=== PATIENT | male | born 1970 | race Caucasian/White ===

== ENCOUNTER 2021-01-13 08:45 | Emergency (ER) | payer OTHER ==
[2021-01-13] MEDS ORDERED: diphenhydrAMINE 25 MG Cap PO ONE (09:34)
--- NOTE | 2021-01-13 09:37 | EDM.PDOC ---
ED HPI GENERAL MEDICAL PROBLEM - General Chief Complaint: Lower Extremity Injury/Pain Stated Complaint: L FOOT/ANKLE SWOLLEN Time Seen by Provider: 01/13/21 09:20 Source of Information: Reports: Patient. Denies: Old Records History Limitations: Reports: No Limitations - History of Present Illness INITIAL COMMENTS - FREE TEXT/NARRATIVE: 50 yo male tourist woke up today with his L foot and leg below the knee red and hot. He denies fever. He scratched at it and said if felt good. May have been bitten by an insect, is not sure. No open wounds. Onset: Today Onset Date: 01/13/21 Duration: Hour(s):, Constant Location: Reports: Lower Extremity, Left Quality: Reports: Dull Severity: Mild Improves with: Reports: None Worsens with: Reports: Other (unsure) Context: Reports: Other (See HPI) Associated Symptoms: Reports: No Other Symptoms. Denies: Fever/Chills Treatments [employer] LINE: Reports: NSAIDS - Related Data Allergies Allergy/AdvReac Type Severity Reaction Status Date / Time No Known Allergies Allergy Verified 01/13/21 09:05 Home Meds: Home Meds Testosterone 100 mg INJECT WEEKLY 01/13/21 [History] Past Medical History HEENT History: Reports: None Cardiovascular History: Reports: None Respiratory History: Reports: None Genitourinary History: Reports: None Musculoskeletal History: Reports: Fracture Neurological History: Reports: None Psychiatric History: Reports: None Endocrine/Metabolic History: Reports: None Hematologic History: Reports: None Immunologic History: Reports: None Oncologic (Cancer) History: Reports: None Dermatologic History: Reports: None - Infectious Disease History Infectious Disease History: Reports: Chicken Pox - Past Surgical History HEENT Surgical History: Reports: None GI Surgical History: Reports: Hernia Repair/Other Musculoskeletal Surgical History: Reports: Shoulder Surgery Other Musculoskeletal Surgeries/Procedures:: both Social & Family History - Tobacco Use Tobacco Use Status *Q: Current Every Day Tobacco User Years of Tobacco use: 30 Packs/Tins Daily: 0.5 - Recreational Drug Use Recreational Drug Use: No Review of Systems - Review of Systems Review Of Systems: See Below Constitutional: Reports: No Symptoms Mouth/Throat: Reports: No Symptoms Respiratory: Reports: No Symptoms Cardiovascular: Reports: No Symptoms Skin: Reports: Pruritis (mild of L leg), Erythema (from L knee down). Denies: Wound Neurological: Reports: No Symptoms ED EXAM, GENERAL - Physical Exam Exam: See Below Exam Limited By: No Limitations General Appearance: Alert, WD/WN, No Apparent Distress Eye Exam: Bilateral Eye: Normal Inspection Throat/Mouth: Normal Lips, Normal Oropharynx, Normal Voice, No Airway Compromise Head: Atraumatic, Normocephalic Respiratory/Chest: No Respiratory Distress, Lungs Clear, Normal Breath Sounds Cardiovascular: Regular Rate, Rhythm Extremities: Pedal Edema (L foot puffy dorsally), Increased Warmth (everywhere below the L knee), Redness (below the L knee). No: No Pedal Edema Neurological: Alert, Oriented, CN II-XII Intact, Normal Cognition, No Motor/Sensory Deficits Psychiatric: Normal Affect, Normal Mood Skin Exam: Warm, Dry, Intact, No Rash, Erythema (L leg and foot), Increased Warmth (L leg and foot). No: Normal Color, Wound/Incision Course - Vital Signs Last Recorded V/S: Last Vital Signs Temp 36.8 C 01/13/21 09:04 Pulse 95 01/13/21 09:13 Resp 16 01/13/21 09:13 BP 168/107 H 01/13/21 09:13 Pulse Ox 96 01/13/21 09:13 - Orders/Labs/Meds Labs: Laboratory Tests 01/13/21 01/13/21 Range/Units 09:41 09:41 WBC 9.2 (4.5-11.0) K/uL RBC 5.63 (4.30-5.90) M/uL Hgb 16.5 H (12.0-15.0) g/dL Hct 50.3 (40.0-54.0) % MCV 89 (80-98) fL MCH 29 (27-31) pg MCHC 33 (32-36) % Plt Count 239 (150-400) K/uL C-Reactive Protein 1.91 H (0.0-0.3) mg/dL Meds: Medications Discontinued Medications Generic Name Dose Route Start Last Admin Trade Name Freq PRN Reason Stop Dose Admin Diphenhydramine HCl 50 mg 01/13/21 09:34 01/13/21 09:38 Diphenhydramine 25 Mg Cap PO 01/13/21 09:35 50 mg ONETIME ONE Administration Departure - Departure Time of Disposition: 10:05 Disposition: Home, Self-Care 01 Condition: Fair Clinical Impression: Insect bite of lower leg with local reaction Qualifiers: Encounter type: initial encounter Laterality: left Qualified Code(s): S80.862A - Insect bite (nonvenomous), left lower leg, initial encounter; W57.XXXA - Bitten or stung by nonvenomous insect and other nonvenomous arthropods, initial encounter - Discharge Information *PRESCRIPTION DRUG MONITORING PROGRAM REVIEWED*: Not Applicable *COPY OF PRESCRIPTION DRUG MONITORING REPORT IN PATIENT BRODIE: Not Applicable Instructions: Insect Bite, Adult, [id number] Referrals: PCP,None [Primary Care Provider] - Forms: ED Department Discharge Additional Instructions: Take diphenhydramine 50 mg every 4 hrs until the reaction is resolved. Elevate your leg above your heart to reduce swelling. Because your CRP inflammatory marker was elevated I am going to prescribe also and antibiotic called cephalexin. Take this until your redness has been completely gone for 24 hrs. If the redness climbs above your knee or you develop a fever you need to return. See your doctor dwaine regarding your hypertension. Sepsis Event Note (ED) - Evaluation Sepsis Screening Result: No Definite Risk - Focused Exam Vital Signs: Vital Signs Temp Pulse Resp BP Pulse Ox 01/13/21 09:13 95 16 168/107 H 96 01/13/21 09:04 36.8 C 98 16 175/101 H 92 L 01/13/21 09:02 36.8 C 98 16 175/101 H 92 L
[2021-01-13] MEDS ORDERED: Cephalexin 250 MG Cap PO ONE ×2 (10:03→10:12)
== END 2021-01-13 10:24 | disposition home or self-care (01) ==
LOC: JP.ED 08:45
DX: S80.862A Insect bite (nonvenomous), left lower leg, initial encounter (principal); Z72.0 Tobacco use; W57.XXXA Bitten or stung by nonvenomous insect and other nonvenomous arthropods, initial encounter
CPT/HCPCS: 36415; 85027; 86140; 99283; A9270